=== PATIENT | female | born 1985 | race Hispanic/Latino ===

== ENCOUNTER 2022-04-24 15:31 | Inpatient (IN) | payer SELFPAY ==
[~2022-04-24 15:31] MED LIST: Iopamidol 300 61% 100 ML VIAL FS ONE
[2022-04-24 16:07] LABS: #Eosinphils 0.1 10x3/uL (0.0-0.5); #Monocytes 0.8 10x3/uL (0.0-1.1); #Neutrophils 13.2 10x3/uL (1.5-8.4); %Basophils 0.2 % (0.0-2.0); %Eosinophils 0.6 % (0.0-6.0); %Lymphocytes 10.8 % (18.0-47.0); %Monocytes 5.2 % (0.0-10.0); %Neutrophils 82.7 % (40.0-75.0); Hemoglobin 11.7 g/dL (12.0-15.5); Mean Corpuscular Hemoglobin 28.4 pg (27.0-33.0); Mean Corpuscular Volume 86.2 fl (81.6-98.3); Mean Platelet Volume 9.3 fl (7.4-10.4); Platelet Count 306 10x3/uL (150-450); RBC Distribution Width 13.1 % (11.5-14.5); Red Blood Cell (RBC) Count 4.12 10x6/uL (3.90-5.03)
[2022-04-24 16:21] LABS: Bilirubin 1+ (Negative); Blood, Urine 50 (Negative); Clarity Clear (Clear); Glucose, Urine (Dipstick) Normal (Negative); Ketone, Urine Negative (Negative); Leukocyte 500 (Negative); Nitrite Negative (Negative); Protein, Urine (Dipstick) 30 mg/dl (Neg-Trace)
[2022-04-24 16:38] LABS: ALT (SGPT) 9 U/L (8-55); AST (SGOT) 7 U/L (5-34); Albumin 4.2 g/dL (3.5-5.0); Alkaline Phosphatase 61 U/L (40-110); Anion Gap 12 mmol/L (10-20); BUN (Urea Nitrogen) 7 mg/dL (7.0-18.7); Bilirubin, Total 1.2 mg/dL (0.2-1.2); Calc. Creatinine Clearance 0 mL/min (70-130); Calcium 9.6 mg/dL (7.8-10.44); Carbon Dioxide 26 mmol/L (22-29); Chloride 99 mmol/L (98-107); Estimated GFR 116; Globulin 3.6 g/dL (2.4-3.5); Glucose 170 mg/dL (70-105); Potassium 3.3 mmol/L (3.5-5.1); Protein, Total 7.8 g/dL (6.0-8.3); Sodium 134 mmol/L (136-145)
[2022-04-24 16:43] LABS: Bacteria/HPF 3+ HPF (None Seen); Mucous/LPF 4+ LPF (<2+)
[2022-04-24] MEDS ORDERED: Lidocaine 1% w/Epinephrine 1:100K 20 ML VIAL ONE (17:17)
[2022-04-24] MEDS ORDERED: Cefepime 2 GM VIAL ONE (17:18)
[2022-04-24 18:06] LABS: Pregnancy Test - Urine (BHCG) Negative (Negative); Pregu Control Background? CLEAR/WHITE (CLR/WHITE); Pregu Control Bar Appear? YES (CONTROL BAR)
[2022-04-24] MEDS ORDERED: VANCOMYCIN 2 GRAM/400 ML BAG 2 GM in Premix Bag 1 BAG IVPB SCH (18:45)
[2022-04-24] MEDS ORDERED: Senokot S 8.6-50 MG TAB PO PRN (21:40)
[2022-04-24] MEDS ORDERED: HYDROcodone/Acetaminophen 10/325 mg Tablet PO PRN (21:40)
[2022-04-24] MEDS ORDERED: HYDROcodone/Acetaminophen 5/325 mg Tablet PO PRN (21:40)
[2022-04-24 22:13] LABS: Magnesium 1.8 mg/dL (1.6-2.6)
[2022-04-24 22:38] VITALS: BMI 37.1
[2022-04-24] MEDS ORDERED: Potassium Chloride 20 MEQ TAB PO SCH (22:45)
[2022-04-24] MEDS: Sodium Chloride 0.9% 1,000 ML IV SCH (22:49)
[2022-04-25] MEDS: Acetaminophen 325 MG TAB PO PRN (03:21)
[2022-04-25 04:40] LABS: #Eosinphils 0.2 10x3/uL (0.0-0.5); #Monocytes 1.2 10x3/uL (0.0-1.1); #Neutrophils 11.8 10x3/uL (1.5-8.4); %Basophils 0.2 % (0.0-2.0); %Eosinophils 1.2 % (0.0-6.0); %Lymphocytes 17.2 % (18.0-47.0); %Monocytes 7.5 % (0.0-10.0); %Neutrophils 73.3 % (40.0-75.0); Hemoglobin 10.4 g/dL (12.0-15.5); Mean Corpuscular HGB CONC 34.1 g/dL (32.0-36.0); Mean Corpuscular Hemoglobin 29.1 pg (27.0-33.0); Mean Corpuscular Volume 85.2 fl (81.6-98.3); Mean Platelet Volume 9.3 fl (7.4-10.4); Platelet Count 250 10x3/uL (150-450); RBC Distribution Width 13.2 % (11.5-14.5); Red Blood Cell (RBC) Count 3.58 10x6/uL (3.90-5.03); White Blood Cell (WBC) Count 16.1 10x3/uL (3.5-10.5)
[2022-04-25 04:44] LABS: Anion Gap 12 mmol/L (10-20); BUN (Urea Nitrogen) 5 mg/dL (7.0-18.7); Calc. Creatinine Clearance 219 mL/min (70-130); Calcium 8.3 mg/dL (7.8-10.44); Carbon Dioxide 24 mmol/L (22-29); Chloride 105 mmol/L (98-107); Estimated GFR 120; Glucose 140 mg/dL (70-105); Potassium 3.4 mmol/L (3.5-5.1); Sodium 138 mmol/L (136-145)
[2022-04-25] MEDS: Cefepime 2 GM in Sodium Chloride 0.9% 100 ML IVPB SCH ×2 (06:02→18:26)
[2022-04-25] MEDS ORDERED: Sodium Chloride 0.9% 100 ML ONE (06:02)
[2022-04-25] MEDS ORDERED: Cefepime 2 GM VIAL ONE (06:02)
[2022-04-25] MEDS: VANCOMYCIN IVPB SCH ×2 (06:59→20:53)
[2022-04-25] MEDS ORDERED: Vancomycin 1.5 GRAM/300 ML BAG IVPB SCH (07:00)
[2022-04-25] MEDS ORDERED: Potassium Chloride 20 MEQ TAB PO SCH (08:45)
[2022-04-25] MEDS: Enoxaparin Sodium 40 MG/0.4 ML SYRINGE SC SCH (09:41)
[2022-04-25] MEDS: Sodium Chloride 0.9% 1,000 ML IV SCH ×2 (16:11→17:45)
[2022-04-26 06:03] LABS: Anion Gap 12 mmol/L (10-20); BUN (Urea Nitrogen) 4 mg/dL (7.0-18.7); Calc. Creatinine Clearance 219 mL/min (70-130); Calcium 8.4 mg/dL (7.8-10.44); Carbon Dioxide 24 mmol/L (22-29); Chloride 106 mmol/L (98-107); Estimated GFR 120; Glucose 126 mg/dL (70-105); Potassium 3.3 mmol/L (3.5-5.1); Sodium 139 mmol/L (136-145); Vancomycin, Trough 7.6 ug/mL
[2022-04-26] MEDS: Cefepime 2 GM in Sodium Chloride 0.9% 100 ML IVPB SCH (06:15)
[2022-04-26] MEDS: Acetaminophen 325 MG TAB PO PRN (06:21)
[2022-04-26] MEDS: Sodium Chloride 0.9% 1,000 ML IV SCH (06:21)
[2022-04-26 06:45] LABS: Hemoglobin 10.4 g/dL (12.0-15.5); Mean Corpuscular HGB CONC 33.4 g/dL (32.0-36.0); Mean Corpuscular Hemoglobin 28.7 pg (27.0-33.0); Mean Corpuscular Volume 85.9 fl (81.6-98.3); Mean Platelet Volume 9.5 fl (7.4-10.4); Platelet Count 257 10x3/uL (150-450); RBC Distribution Width 13.2 % (11.5-14.5); Red Blood Cell (RBC) Count 3.62 10x6/uL (3.90-5.03); White Blood Cell (WBC) Count 9.3 10x3/uL (3.5-10.5)
[2022-04-26 07:21] VITALS: TEMP 97.6
[2022-04-26] MEDS ORDERED: Vancomycin HCl 1.5 GM, Admixture Fee 1 EACH in Sodium Chloride 0.9% 250 ML 300 ML IVPB SCH (07:30)
[2022-04-26 08:12] VITALS: BP 108/58
[2022-04-26] MEDS: VANCOMYCIN IVPB SCH (08:13)
[2022-04-26] MEDS: Enoxaparin Sodium 40 MG/0.4 ML SYRINGE SC SCH (08:22)
[2022-04-26] MEDS ORDERED: Potassium Chloride 20 MEQ TAB PO SCH (08:45)
[2022-04-26] MEDS ORDERED: Amoxicillin/Potassium Clav 875 MG TAB PO SCH (09:45)
== END 2022-04-26 11:19 | disposition home or self-care (01) | DRG 872 ==
LOC: CSHERS 15:31 → OBSVTOIN 22:30 → CSHTELE 22:30
PROVIDERS: ADMIT Family Medicine; ATTEND Internal Medicine
DX: A41.9 Sepsis, unspecified organism (principal); L03.312 Cellulitis of back [any part except buttock and flank]; L02.212 Cutaneous abscess of back [any part, except buttock and flank]; Z20.822 Contact with and (suspected) exposure to COVID-19; E66.9 Obesity, unspecified; E87.6 Hypokalemia; Z79.899 Other long term (current) drug therapy; Z82.49 Family history of ischemic heart disease and other diseases of the circulatory system; Z83.3 Family history of diabetes mellitus; Z68.37 Body mass index [BMI] 37.0-37.9, adult
CPT/HCPCS: 36415; 74177; 80048; 80053; 80202; 81003; 81015; 81025; 83605; 83735; 85025; 85027; 87040; 87149; 97139; J0692; J1650; J3370; J3490; J7050; Q9967; U0003; U0005

== ENCOUNTER 2023-04-02 20:47 | Emergency (ER) | payer SELFPAY ==
[2023-04-02 21:59] LABS: #Eosinphils 0.3 10x3/uL (0.0-0.5); #Monocytes 0.4 10x3/uL (0.0-1.1); #Neutrophils 5.8 10x3/uL (1.5-8.4); %Basophils 0.2 % (0.0-2.0); %Eosinophils 2.8 % (0.0-6.0); %Lymphocytes 26.5 % (18.0-47.0); %Monocytes 4.9 % (0.0-10.0); %Neutrophils 65.3 % (40.0-75.0); Hemoglobin 11.8 g/dL (12.0-15.5); Mean Corpuscular HGB CONC 33.1 g/dL (32.0-36.0); Mean Corpuscular Hemoglobin 29.1 pg (27.0-33.0); Mean Corpuscular Volume 87.9 fl (81.6-98.3); Mean Platelet Volume 9.2 fl (7.4-10.4); Platelet Count 232 10x3/uL (150-450); Red Blood Cell (RBC) Count 4.06 10x6/uL (3.90-5.03); White Blood Cell (WBC) Count 8.8 10x3/uL (3.5-10.5)
[2023-04-02 22:02] LABS: Bilirubin Neg (Negative); Blood, Urine 150 (Negative); Clarity Clear (Clear); Glucose, Urine (Dipstick) 100 mg/dL (Negative); Ketone, Urine Negative (Negative); Leukocyte Negative (Negative); Nitrite Negative (Negative); Protein, Urine (Dipstick) Negative (Neg-Trace)
[2023-04-02 22:11] LABS: Bacteria/HPF None Seen HPF (None Seen); CAUTI Indications for Culture Pregnancy; RBC/HPF 0-3 HPF (0-3); Squamous Epithelial 0-3 HPF (0-3); WBC/HPF 0-3 HPF (0-3)
[2023-04-02 22:13] LABS: Urine Culture Reflex Yes Yes
[2023-04-02 22:17] LABS: ALT (SGPT) 11 U/L (8-55); AST (SGOT) 10 U/L (5-34); Albumin 3.8 g/dL (3.5-5.0); Alkaline Phosphatase 34 U/L (40-110); Anion Gap 15 mmol/L (10-20); BUN (Urea Nitrogen) 10 mg/dL (7.0-18.7); Bilirubin, Total 0.4 mg/dL (0.2-1.2); Calc. Creatinine Clearance 0 mL/min (70-130); Calcium 9.2 mg/dL (7.8-10.44); Carbon Dioxide 20 mmol/L (22-29); Chloride 105 mmol/L (98-107); Estimated GFR 119; Glucose 161 mg/dL (70-105); Potassium 3.6 mmol/L (3.5-5.1); Protein, Total 6.8 g/dL (6.0-8.3); Sodium 136 mmol/L (136-145)
== END 2023-04-02 23:50 | disposition home or self-care (01) ==
LOC: CSHERS 20:47
DX: O20.0 Threatened abortion (principal); O99.411 Diseases of the circulatory system complicating pregnancy, first trimester; I10 Essential (primary) hypertension; R51.9 Headache, unspecified; Z3A.11 11 weeks gestation of pregnancy
CPT/HCPCS: 70450; 76856; 80053; 81001; 84702; 85025; 87086